=== PATIENT | female | born 1990 | race Caucasian/White ===

== ENCOUNTER 2021-11-15 11:02 | Emergency (ER) | payer BC ==
[~2021-11-15] VITALS: Ht 160 cm; Wt 79.4 kg
[~2021-11-15 11:02] MED LIST: ALBUTEROL INH; HYDROXYZINE HCL25 M1 PO; ORTHO TRI-CYCL1 EACH
[2021-11-15 12:50] LABS: INFLUENZA A ANTIGEN Negative (Negative); INFLUENZA B ANTIGEN Negative (Negative)
[2021-11-15] MEDS ORDERED: ONDANSETRON HCL4 M2 PO (13:09)
[2021-11-15] MEDS ORDERED: APAP W/CODEINE1 TA2 PO (13:09)
[2021-11-15 13:25] VITALS: BP 106/73
== END 2021-11-15 13:27 | disposition home or self-care (01) ==
LOC: M.ERS 11:02
PROVIDERS: Physician Assistant
DX: U07.1 COVID-19 (principal); J45.909 Unspecified asthma, uncomplicated